=== PATIENT | female | born 1960 | race Caucasian/White ===

== ENCOUNTER 2017-07-31 16:29 | Emergency (ER) | payer OTHER ==
[~2017-07-31] VITALS: Ht 152.4 cm; Wt 67.0 kg
[2017-07-31 17:34] VITALS: BP 179/105; PULSE 97; RESP 24; TEMP 97.7; O2SAT 95
[2017-07-31] MEDS ORDERED: ONDANSETRON HCL 4 MG/2 ML VIAL IV PUSH ONE (18:00)
[2017-07-31] MEDS ORDERED: SODIUM CHLOR 0.9% 250 ML INJ 250 ML IV ONE (18:00)
[2017-07-31] MEDS ORDERED: SODIUM CHLORIDE 0.9% FLUSH 10 ML FLUSH IVF PRN (18:00)
[2017-07-31] MEDS ORDERED: methylPREDNISolone SOD SUCC 125 MG/2 ML VIAL IV PUSH ONE (18:00)
[2017-07-31] MEDS ORDERED: SYMB160A INH ×2 (18:01→19:58)
[2017-07-31] MEDS ORDERED: VENTAER INH (18:01)
--- NOTE | 2017-07-31 18:06 | PD ---
HPI Chief Complaint: Respiratory Distress Time Seen by Provider: 17:38 Travel History International Travel<30 days: No Contact w/Intl Traveler<30days: No Traveled to known affect area: No History of Present Illness HPI The patient is a 57-year-old female who presents to the emergency department for shortness of breath. The patient has a history of COPD, however , denies tobacco use. The patient is normally on Symbicort and nebulizers, however, ran out of her Symbicort yesterday. The patient recently moved from [place] to the local area does not have a primary physician or radiology teacher who will accept her insurance. She does have a history of chronic wheezing, however, has progressed since she ran out of her Symbicort. She does have a dry nonproductive cough. She denies any fever, chills, or sweats. She denies any chest pain but does know mild tightness associated with the wheezing. She has been using nebulizers with minimal relief of her symptoms. 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) Tetanus Vaccination: Unknown ?: Not Tubal Ligation: Yes Past Surgical History Other Surgery: Yes (NF) Social History Alcohol Use: Yes (RARE) Tobacco Use: No Substance Use: No Allergies-Medications (Allergen,Severity, Reaction): Coded Allergies: Penicillins (Verified Allergy, Unknown, 07/31/17) Reported Meds & Prescriptions Reported Meds & Active Scripts Active Reported Ventolin Hfa 18 GM Inh (Albuterol Sulfate) 90 Mcg/Act Aer 2 Puff INH Q4-6H PRN Symbicort Inh (Budesonide/Formoterol Fumarate) 160-4.5 Mcg/Act Aero 2 Puff INH Q12HR Review of Systems Except as stated in HPI: all other systems reviewed are Neg General / Constitutional: No: Fever Cardiovascular: No: Chest Pain or Discomfort Respiratory: Positive: Cough, Shortness of Breath, Wheezing Gastrointestinal: No: Nausea, Vomiting, Abdominal Pain Neurologic: No: Dizziness Physical Exam Narrative GENERAL: Awake, alert, pleasant 57-year-old female who appears her stated age and is in no acute respiratory distress. Mild respiratory distress. SKIN: Focused skin assessment warm/dry. HEAD: Atraumatic. Normocephalic. EYES: No injection or drainage. ENT: No nasal bleeding or discharge. Mucous membranes pink and moist. NECK: Trachea midline. No JVD. CARDIOVASCULAR: Regular rate and rhythm. No murmur appreciated. Heart rate in the 90s. RESPIRATORY: No accessory muscle use. Prolonged expiratory phase with diffuse wheezing. GASTROINTESTINAL: Abdomen soft, non-tender, nondistended. Back: Scoliosis and kyphosis noted. Surgical scar noted. MUSCULOSKELETAL: No cyanosis noted. NEUROLOGICAL: Awake and alert. No obvious cranial nerve deficits. Motor grossly within normal limits. Normal speech. PSYCHIATRIC: Appropriate mood and affect; insight and judgment normal. Data Data Last Documented VS Vital Signs Date Time Temp Pulse Resp B/P (MAP) Pulse Ox O2 Delivery O2 Flow Rate FiO2 07/31/17 19:00 77 18 144/89 (107) 100 Room Air 07/31/17 18:21 2.00 07/31/17 17:34 97.7 Orders Orders Complete Blood Count With Diff (07/31/17 18:00) Comprehensive Metabolic Panel (07/31/17 18:00) B-Type Natriuretic Peptide (07/31/17 18:00) Magnesium (Mg) (07/31/17 18:00) Iv Access Insert/Monitor (07/31/17 18:00) Ecg Monitoring (07/31/17 18:00) Oximetry (07/31/17 18:00) Oxygen Administration (07/31/17 18:00) Chest, Single Ap (07/31/17 18:00) Sodium Chloride 0.9% Flush (Ns Flush) (07/31/17 18:00) Methylprednisolone So Succ Inj (Solumedr (07/31/17 18:00) Albuterol-Ipratropium Neb (Duoneb Neb) (07/31/17 18:00) Sodium Chlor 0.9% 250 Ml Inj (Ns 250 Ml (07/31/17 18:00) Ondansetron Inj (Zofran Inj) (07/31/17 18:00) Labs Laboratory Tests Test 07/31/17 18:10 White Blood Count 9.2 TH/MM3 Red Blood Count 5.05 MIL/MM3 Hemoglobin 14.7 GM/DL Hematocrit 44.1 % Mean Corpuscular Volume 87.3 FL Mean Corpuscular Hemoglobin 29.0 PG Mean Corpuscular Hemoglobin Concent 33.3 % Red Cell Distribution Width 13.8 % Platelet Count 453 TH/MM3 Mean Platelet Volume 7.5 FL Neutrophils (%) (Auto) 64.1 % Lymphocytes (%) (Auto) 18.4 % Monocytes (%) (Auto) 6.3 % Eosinophils (%) (Auto) 10.0 % Basophils (%) (Auto) 1.2 % Neutrophils # (Auto) 5.9 TH/MM3 Lymphocytes # (Auto) 1.7 TH/MM3 Monocytes # (Auto) 0.6 TH/MM3 Eosinophils # (Auto) 0.9 TH/MM3 Basophils # (Auto) 0.1 TH/MM3 CBC Comment DIFF FINAL Differential Comment Blood Urea Nitrogen 7 MG/DL Creatinine 0.67 MG/DL Random Glucose 94 MG/DL Total Protein 7.4 GM/DL Albumin 3.4 GM/DL Calcium Level 8.6 MG/DL Magnesium Level 2.3 MG/DL Alkaline Phosphatase 111 U/L Aspartate Amino Transf (AST/SGOT) 23 U/L Alanine Aminotransferase (ALT/SGPT) 16 U/L Total Bilirubin 0.4 MG/DL Sodium Level 135 MEQ/L Potassium Level 3.7 MEQ/L Chloride Level 101 MEQ/L Carbon Dioxide Level 25.0 MEQ/L Anion Gap 9 MEQ/L Estimat Glomerular Filtration Rate 91 ML/MIN B-Type Natriuretic Peptide 10 PG/ML MDM Medical Decision Making Medical Screen Exam Complete: Yes Emergency Medical Condition: Yes Medical Record Reviewed: Yes Interpretation(s) Laboratory Tests Test 07/31/17 18:10 White Blood Count 9.2 TH/MM3 Red Blood Count 5.05 MIL/MM3 Hemoglobin 14.7 GM/DL Hematocrit 44.1 % Mean Corpuscular Volume 87.3 FL Mean Corpuscular Hemoglobin 29.0 PG Mean Corpuscular Hemoglobin Concent 33.3 % Red Cell Distribution Width 13.8 % Platelet Count 453 TH/MM3 Mean Platelet Volume 7.5 FL Neutrophils (%) (Auto) 64.1 % Lymphocytes (%) (Auto) 18.4 % Monocytes (%) (Auto) 6.3 % Eosinophils (%) (Auto) 10.0 % Basophils (%) (Auto) 1.2 % Neutrophils # (Auto) 5.9 TH/MM3 Lymphocytes # (Auto) 1.7 TH/MM3 Monocytes # (Auto) 0.6 TH/MM3 Eosinophils # (Auto) 0.9 TH/MM3 Basophils # (Auto) 0.1 TH/MM3 CBC Comment DIFF FINAL Differential Comment Blood Urea Nitrogen 7 MG/DL Creatinine 0.67 MG/DL Random Glucose 94 MG/DL Total Protein 7.4 GM/DL Albumin 3.4 GM/DL Calcium Level 8.6 MG/DL Magnesium Level 2.3 MG/DL Alkaline Phosphatase 111 U/L Aspartate Amino Transf (AST/SGOT) 23 U/L Alanine Aminotransferase (ALT/SGPT) 16 U/L Total Bilirubin 0.4 MG/DL Sodium Level 135 MEQ/L Potassium Level 3.7 MEQ/L Chloride Level 101 MEQ/L Carbon Dioxide Level 25.0 MEQ/L Anion Gap 9 MEQ/L Estimat Glomerular Filtration Rate 91 ML/MIN B-Type Natriuretic Peptide 10 PG/ML Last Impressions Chest X-Ray 07/31/17 1800 Signed Impressions: Service Date/Time: Monday, July 31, 2017 18:33 - CONCLUSION: 1. Moderate dextroscoliosis. Minimal basilar atelectasis or scarring. Aleksandar Glover MD Differential Diagnosis Differential diagnosis includes COPD exacerbation, asthma exacerbation, bronchitis, pneumonia, congestive heart failure, pleural effusion, pulmonary edema, pneumothorax, pulmonary embolism, ACS. Narrative Course IV was established, labs were drawn and sent, and the patient was placed on cardiac telemetry monitoring and continuous pulse oximetry monitoring. Chest x- ray was obtained. The patient received Solu-Medrol 125 mg intravenously and duo nebs 3. The patient's labs are unremarkable. Chest x-ray is unremarkable , no acute findings. Laboratory evaluation is unremarkable. The patient was reevaluated at 7:50 PM, her symptoms have significantly improved. The patient will be placed back on her Symbicort, will be placed on steroids, nebulizers, and antibiotics. She is advised to follow-up with a primary physician and/or radiology teacher. Diagnosis Primary Impression: COPD exacerbation Patient Instructions: General Instructions Additional Instructions: Medications as directed. Follow-up with a primary physician and/or radiology teacher. Please provide the patient a copy of her x-ray results and lab results at discharge. Return if symptoms worsen or progress. Med/Other Pt SpecificInfo: Prescription(s) given Scripts Albuterol Neb (Albuterol Neb) 2.5 Mg/3 Ml Neb 2.5 MG NEB Q4HR NEB Y for SHORTNESS OF BREATH, #60 NEBULE 0 Refills Prov: Daniel Bowles MD 07/31/17 Budesonide-Formoterol Inh (Symbicort Inh) 160-4.5 Mcg/Act Aero 2 PUFF INH Q12HR, #1 INHALER 0 Refills Prov: Daniel Bowles MD 07/31/17 Azithromycin (Zithromax Z-Boy) 250 Mg Dspk 250 MG PO DIRECTED for Infection, #1 DSPK 0 Refills 500 MG (2 tabs) day 1, then 1 tab days 2-5. Prov: Daniel Bowles MD 07/31/17 Prednisone (Prednisone) 20 Mg Tab 40 MG PO DAILY, #10 TAB 0 Refills Take 40 mg (2 tablets) daily for 5 days Prov: Daniel Bowles MD 07/31/17 Disposition: 01 DISCHARGE HOME Condition: Stable Daniel Bowles MD Jul 31, 2017 18:06
[2017-07-31] MEDS: RESP: ALBUTEROL 2.5 MG/IPRATROPIUM 0.5 MG NEB (SCH) INH (18:15)
[2017-07-31 18:19] VITALS: O2SAT 95
[2017-07-31 18:49] LABS: AUTOMATED NEUTROPHIL # 5.9 TH/MM3 (1.8-7.7); BASOPHIL # 0.1 TH/MM3 (0-0.2); BASOPHIL % 1.2 % (0.0-2.0); EOSINOPHIL # 0.9 TH/MM3 (0-0.4); HEMATOCRIT 44.1 % (35.0-46.0); HEMOGLOBIN 14.7 GM/DL (11.6-15.3); LYMPH % 18.4 % (9.0-44.0); LYMPHOCYTE # 1.7 TH/MM3 (1.0-4.8); MEAN CELL VOLUME 87.3 FL (80.0-100.0); MEAN CORPUSCULAR HGB CONC 33.3 % (32.0-36.0); MEAN PLATELET VOLUME 7.5 FL (7.0-11.0); MONO % 6.3 % (0.0-8.0); MONOCYTE # 0.6 TH/MM3 (0-0.9); NEUT % 64.1 % (16.0-70.0); PLATELET COUNT 453 TH/MM3 (150-450); RED BLOOD COUNT 5.05 MIL/MM3 (4.00-5.30); RED CELL DISTRIBUTION WIDTH 13.8 % (11.6-17.2); WHITE BLOOD COUNT 9.2 TH/MM3 (4.0-11.0)
[2017-07-31 18:57] LABS: CHLORIDE 101 MEQ/L (98-107); SODIUM (NA) 135 MEQ/L (136-145)
[2017-07-31 19:00] VITALS: BP 144/89; PULSE 77; RESP 18; O2SAT 100
[2017-07-31 19:01] LABS: CALCIUM 8.6 MG/DL (8.5-10.1)
[2017-07-31 19:02] LABS: ALBUMIN 3.4 GM/DL (3.4-5.0); BLOOD UREA NITROGEN 7 MG/DL (7-18); GLUCOSE,RANDOM 94 MG/DL (74-106); MAGNESIUM 2.3 MG/DL (1.5-2.5)
[2017-07-31 19:05] LABS: ALT (GPT) 16 U/L (10-53); AST (GOT) 23 U/L (15-37); CREATININE 0.67 MG/DL (0.50-1.00); GLOMERULAR FILTRATION RATE 91 ML/MIN (>89)
[2017-07-31 19:07] LABS: TOTAL BILIRUBIN ADULT 0.4 MG/DL (0.2-1.0); TOTAL PROTEIN 7.4 GM/DL (6.4-8.2)
[2017-07-31 19:08] LABS: ALKALINE PHOSPHATASE 111 U/L (45-117)
--- NOTE | 2017-07-31 19:44 | RADRPT ---
EXAM DATE/TIME: 07/31/2017 18:33 [facility] COMPARISON: No previous studies available for comparison. INDICATIONS : Shortness of breath MEDICAL HISTORY : Scoliosis SURGICAL HISTORY : Spinal fusion ENCOUNTER: Initial ACUITY: 1 day PAIN SCORE: 0/10 LOCATION: Bilateral chest FINDINGS: A single view of the chest demonstrates moderate dextroscoliosis. Mild basilar atelectasis or scarrin g. No effusion. No pneumothorax. CONCLUSION: 1. Moderate dextroscoliosis. Minimal basilar atelectasis or scarring. Aleksandar Glover MD on July 31, 2017 at 19:41 Board Certified Radiologist. This report was verified electronically.
[2017-07-31] MEDS ORDERED: PRED20 PO (19:58)
[2017-07-31] MEDS ORDERED: ALBU0.08 NEB (19:58)
[2017-07-31] MEDS ORDERED: ZITHTAB PO (19:58)
[2017-07-31 20:21] VITALS: BP 145/88
== END 2017-07-31 20:30 | disposition home or self-care (01) ==
LOC: PHED 16:29
DX: J44.1 Chronic obstructive pulmonary disease with (acute) exacerbation (principal); Z88.0 Allergy status to penicillin
CPT/HCPCS: 71045; 80053; 83735; 83880; 85025; 94640; 94664; 96361; 96374; 96375; 99284; J2405; J2930; J7050